=== PATIENT | male | born 1960 | race Caucasian/White ===

== ENCOUNTER → 2016-09-14 | Outpatient (CLI) | payer OTHER ==
[~2016-09-14] VITALS: Ht 193 cm; Wt 127.9 kg
[~2016-09-14] MED LIST: ALEVE220 MG; ANDROGEL75 GM; BISOPROLOL FUM2.5 MG PO; CLONIDINE0.1 PO; CLOTRIMAZOLE-BE15 GM TP; LOTREL 5-20 MG1 EACH PO
--- NOTE | ~2016-09-14 | HPC ---
[facility] [place] [address] PAIN MANAGEMENT CONSULTATION Name: ANTHONY MARRERO III Room #: REG [facility] Crow#: [id number] Admission: 09/14/16 Attend Phys: Abel Quezada MD Discharge: Date of : 58 Report #: [id number] THIS REPORT FOR: //name// CC: Corky Quezada DATE OF SERVICE: 09/14/2016 DATE OF REGISTRATION: 09/14/2016 REASON FOR VISIT: Followup visit for lumbar radiculopathy secondary to grade 1 spondylolisthesis. SUBJECTIVE: The patient returns to pain clinic today, would like to see if we can provide him with another epidural injection. He has grade 1 spondylolisthesis and has recurring lumbar radicular pain. He describes his pain as bilateral, although the majority of pain is in the right leg. When the pain is severe as it is now, it radiates into both legs and is associated with tingling, burning, numbness and tingling. He has foraminal stenosis. Pain is worse with standing and walking. He has a Charcot joint and is still in his boot that he was wearing in April. He says that after the injections, he had 80% pain relief that lasted for nearly 4 months. Pain is now returning and he would like to avoid any additional medication including the additional use of opioid medication given concerns about opioids in today's medications. CURRENT MEDICATIONS: Clonidine, naproxen, clotrimazole, hydrochlorothiazide, bisoprolol, amlodipine. ALLERGIES: None. 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 He has a little altered gait due to the fact that he wears his heavy boot for a Charcot joint on the left foot. VITAL SIGNS: His blood pressure is 156/98, pulse rate is 105. His BMI is 34.3. EXTREMITIES: He has pain across his low back with flexion and extension, worse with extension, which reproduces radicular symptoms. Straight leg raising bilaterally is positive and he complains of numbness and tingling. Deep tendon reflexes are absent at the knees and ankle. I did not take off his boot to check the reflex on the left at the ankle, but all other reflexes are absent. IMPRESSION: Lumbar radiculopathy secondary to spondylolisthesis at L5-S1. RECOMMENDATIONS: I would perform the injection today, but unfortunately, he has [facility] [address] [place] [address] PAIN MANAGEMENT CONSULTATION Name: ANTHONY MARRERO KATHERINE Room #: REG [facility] Maria#: [id number] Admission: 09/14/16 Attend Phys: Abel Quezada MD Discharge: Date of : 58 Report #: [id number] [employer] insurance, which will not allow us to perform the injection, and we will have to inconvenience him and allow him to come back. It is a very appropriate therapy for the patient. He would like to avoid surgery. Followup visit is scheduled as soon as we can get the [facility] folks to look at the dictation and send him back to us. An appointment was made for next week. By: 1332 30 Abel Quezada MD /nt
[2016-09-14 13:57] VITALS: BP 156/98
== END | disposition home or self-care (01) ==
LOC: PAIN 07:30
DX: M43.16 Spondylolisthesis, lumbar region (principal)

== ENCOUNTER → 2016-09-21 | Outpatient (CLI) | payer OTHER ==
[~2016-09-21] VITALS: Ht 193 cm; Wt 129.3 kg
[~2016-09-21] MED LIST changes: +BISOPROLOL FUMAR5 MG PO; +LOSARTAN-HCTZ1 EAC1 PO
--- NOTE | ~2016-09-21 | HPC ---
[address] [address] PAIN MANAGEMENT CONSULTATION Name: ANTHONY MARRERO III Room #: REG [facility]#: [id number] Admission: 09/21/16 Attend Phys: Abel Quezada MD Discharge: Date of : 58 Report #: [id number] THIS REPORT FOR: //name// CC: Corky Quezada DATE OF SERVICE: 09/21/2016 Followup visit for lumbar radiculopathy. The patient returns to pain clinic today with an approval from his insurance company to proceed with lumbar epidural injection. Please refer towards dictation which was just a few days old. Not a thing has changed since his last visit, only approval from the insurance company to proceed. We reviewed the procedure, risks, benefits and he is ready to proceed. He is not on a blood thinner. No allergies to medications currently being used for injection. Questions were answered. IMPRESSION: Lumbar radiculopathy, bilateral secondary to spondylolisthesis at L5-S1. PROCEDURE: L5-S1 epidural injection. DESCRIPTION OF PROCEDURE: The patient was taken to fluoroscopic suite, placed prone, skin prepped with ChloraPrep. Skin anesthetized over L5-S1. A 20-gauge Tuohy epidural needle advanced in the epidural space with loss of resistance. No blood or CSF aspirated. 1 mL of Omnipaque injected and spread of dye observed nicely into the epidural space followed by 3 mL of 0.5% lidocaine mixed with 80 mg of triamcinolone. He tolerated the procedure well and was observed for 45 minutes and discharged. Follow up as needed. No medications were ordered for this patient. By: [id number] Abel Quezada MD /nt
[2016-09-21 15:45] VITALS: BP 163/97
== END ==
LOC: PAIN 07:22
DX: M54.16 Radiculopathy, lumbar region (principal); M43.16 Spondylolisthesis, lumbar region; I10 Essential (primary) hypertension; F10.21 Alcohol dependence, in remission

== ENCOUNTER → 2016-12-14 | Outpatient (CLI) | payer OTHER ==
[~2016-12-14] VITALS: Ht 190.5 cm; Wt 127.7 kg
[~2016-12-14] MED LIST changes: +CLOTRIMAZOLE AF30 GM TP
--- NOTE | ~2016-12-14 | HPC ---
[facility] [place] [address] PAIN MANAGEMENT CONSULTATION Name: ANTHONY MARRERO III Room #: REG [facility].#: [id number] Admission: 12/14/16 Attend Phys: Abel Quezada MD Discharge: Date of : 58 Report #: [id number] THIS REPORT FOR: //name// CC: Corky Quezada DATE OF SERVICE: 12/14/2016 DATE OF REGISTRATION: 12/14/2016. Followup visit for persistent low back pain with radiculopathy. HISTORY OF PRESENT ILLNESS: Anthony here today and would like an epidural, but we cannot do it today. He has ____ insurance, which requires a preauthorization. He has lumbar radiculopathy, which is surely aggravated by the very heavy boot that he is wearing for his Charcot foot. We have got nice relief from his epidural injections in the range of 2.5 to 3 months with substantial reduction. When the pain becomes so severe that it affects his daily standing and walking and his inability to concentrate at work, he has returned today for a repeat injection. Today, he is at that state with pain the intensity level of 7, tingling, burning and aching, radiating down into both legs. PHYSICAL EXAMINATION: VITAL SIGNS: Blood pressure 147/84, heart rate 66, respirations 16. BMI 35.2. Heavy boot noted on the left foot. IMPRESSION: Low back pain with radiculopathy. Pain symptoms are aggravated by the boot ____ have an underlying marzena of the grade 1 spondylolisthesis present at lumbar L5-S1. PLAN: To seek preauthorization for another epidural injections, which we hope we will be able to back away from once he is out of his boot. Appointment was made for 12/21/2016. By: [id number] Abel Quezada MD /nt
[2016-12-14 09:10] VITALS: BP 147/84
== END ==
LOC: PAIN 07:14
DX: M54.16 Radiculopathy, lumbar region (principal); M43.17 Spondylolisthesis, lumbosacral region; Z98.890 Other specified postprocedural states

== ENCOUNTER → 2016-12-21 | Outpatient (CLI) | payer OTHER ==
[~2016-12-21] VITALS: Ht 193 cm; Wt 128.4 kg
--- NOTE | ~2016-12-21 | HPC ---
[facility] [place] [address] PAIN MANAGEMENT CONSULTATION Name: ANTHONY MARRERO III Room #: REG [facility]#: [id number] Admission: 12/21/16 Attend Phys: Abel Quezada MD Discharge: Date of : 58 Report #: [id number] THIS REPORT FOR: //name// CC: Corky Quezada DATE OF SERVICE: 12/21/2016 DATE OF SERVICE: 12/21/2016 Followup visit for lumbar radiculopathy. I saw the patient 1 week ago and assessed him for lumbar epidural steroid injection. We received preauthorization to go forward with that injection. His pain has changed very little since his visit last week. He has trouble with weightbearing. Pain follows the left L4-L5 distribution. He has spondylolisthesis at L5-S1. Previous injections have been performed just above that. IMPRESSION: Lumbar spondylolisthesis, L5-S1. Pain is on the left. PROCEDURE: Lumbar epidural steroid injection L4-L5 right paramedian under fluoroscopic guidance. PROCEDURE: He was taken to the fluoroscopic suite, placed in a prone position. Skin was prepped with ChloraPrep. Skin anesthetized at L4-L5 to the left of midline. A 20-gauge Tuohy epidural needle was advanced in the epidural space. Good loss of resistance. There was no blood or CSF aspirated. 1 mL of Omnipaque injected. Good spread of dye observed in the epidural space. It was then followed by 3 mL of 0.5% lidocaine mixed with 80 mg of triamcinolone. He tolerated the procedure well and was observed for 45 minutes and discharged. Followup visit planned in the pain clinic as needed. By: [id number] Abel Quezada MD /nt
[2016-12-21 10:20] VITALS: BP 124/81
== END ==
LOC: PAIN 06:51
DX: M43.16 Spondylolisthesis, lumbar region (principal); I10 Essential (primary) hypertension

== ENCOUNTER → 2017-11-08 | Outpatient (CLI) | payer OTHER ==
[~2017-11-08] VITALS: Ht 193 cm; Wt 123.5 kg
[~2017-11-08] MED LIST changes: +CLONIDINE HCL0.3 M3 PO; +TOPROL XL100 MG PO; +TYLENOL325 MG PO
--- NOTE | ~2017-11-08 | HPC ---
[facility] [place] [address] PAIN MANAGEMENT CONSULTATION Name: ANTHONY MARRERO III Room #: REG [facility] Crow#: [id number] Admission: 11/08/17 Attend Phys: Abel Quezada MD Discharge: Date of : 58 Report #: [id number] THIS REPORT FOR: //name// CC: Corky Quezada DATE OF SERVICE: 11/08/2017 Followup visit for lumbar radiculopathy, bilateral L5-S1. The patient is here today requesting an epidural injection. He has a lumbar spondylolisthesis grade 1 at L5-S1. Pain is worse on the left and he has numbness in both legs. He has responded beautifully in the past to epidural injections. I perform them about once a year. He is having increasing symptoms. He would like to undergo an epidural injection to assist with some of his new physical therapy. As the record reflects, he has Charcot ankle joint and was wearing a very heavy plastic immobile boot for nearly a year. He now has the boot off. He still has instability of the left ankle and his gait remains altered as a result of both his foot and some compensatory changes in his left hip. He has been working with a therapist, actually a chiropractor, to help him with his gait issues. He is hopeful that the epidural injection will help with some of the symptomatic radiculopathy so that he can continue further with his therapy. MEDICATIONS, ALLERGIES AND PAST MEDICAL HISTORY: Reviewed from the electronic medical record. There have been no significant changes. PHYSICAL EXAMINATION: Blood pressure is 161/84, heart rate 95, respirations 16. BMI is 33.1. His gait is altered with the right foot rotated outward. He has some instability noted in his left ankle. Bilateral straight leg raising discomfort and numbness is noted in the L5-S1 distribution. Deep tendon reflexes are absent bilaterally in lower extremities. IMPRESSION: Chronic and recurring low back pain with radiculopathy, L5-S1 with spondylolisthesis. RECOMMENDATIONS: The patient is not interested in surgery or taking strong medication. He gets up to 3 months of substantial relief following an injection, and I think it is a reasonable management tool for him at this time. We will schedule him back for the pain injection, a lumbar epidural injection at L5-S1 in 1 week after we have received preauthorization from [place] [employer] [place] [address] PAIN MANAGEMENT CONSULTATION Name: ANTHONY MARRERO [facility] [id number] Admission: 11/08/17 Attend Phys: Abel Quezada MD Discharge: Date of : 58 Report #: [id number] All questions were asked and answered. <ELECTRONICALLY SIGNED> By: Abel Quezada MD 11/12/17 1230 [id number] Abel Quezada MD /nt
[2017-11-08 09:17] VITALS: BP 161/84
== END ==
LOC: PAIN 11-01 11:52
DX: M43.17 Spondylolisthesis, lumbosacral region (principal); M54.16 Radiculopathy, lumbar region; M54.5 Low back pain; G89.29 Other chronic pain

== ENCOUNTER → 2017-11-15 | Outpatient (CLI) | payer OTHER ==
[~2017-11-15] VITALS: Ht 193 cm; Wt 123.4 kg
--- NOTE | ~2017-11-15 | HPC ---
[facility] [place] [address] PAIN MANAGEMENT CONSULTATION Name: ANTHONY MARRERO III Room #: REG [facility] Maria#: [id number] Admission: 11/15/17 Attend Phys: Abel Quezada MD Discharge: Date of : 58 Report #: [id number] THIS REPORT FOR: //name// CC: Corky Quezada DATE OF SERVICE: 11/15/2017 Followup visit for epidural steroid injection. The patient returns today for his epidural injection. He was seen just a week or so ago for evaluation. We required preauthorization from [employer], which we have obtained. He has a spondylolisthesis at L5-S1, responds beautifully to epidural injections and his last injection was over a year ago. He is anxious to proceed. He is on no blood thinners. ALLERGIES: Have been reviewed. PHYSICAL EXAMINATION: Unchanged. IMPRESSION: Lumbar spondylolisthesis, L5-S1 with lumbar radiculopathy, bilateral now, pain is a bit worse on the left. PROCEDURE: Epidural steroid injection under fluoroscopic guidance. The patient was taken to fluoroscopic suite, placed prone, skin prepped with ChloraPrep. Skin anesthetized over the L4-L5 interspace. A 20-gauge Tuohy epidural needle advanced at first attempt in the epidural space with loss of resistance technique. There was no blood or no CSF aspirated. 1 mL of Omnipaque injected. Good spread of dye observed into the epidural space, was followed by 3 mL of 0.5% lidocaine mixed with 80 mg of triamcinolone. He tolerated the procedure well and was observed for 45 minutes and discharged. Followup visit planned on an as-needed basis. No medications were ordered for the patient from our clinic. By: 1002 1248 Abel Quezada MD /nt
[2017-11-15 09:22] VITALS: BP 127/70
== END | disposition home or self-care (01) ==
LOC: PAIN 07:00
DX: M54.16 Radiculopathy, lumbar region (principal); G89.29 Other chronic pain; M43.16 Spondylolisthesis, lumbar region; Z79.899 Other long term (current) drug therapy; Z98.890 Other specified postprocedural states